=== PATIENT | male | born 1985 | race Two or more races ===

== ENCOUNTER 2018-10-19 19:21 | Emergency (ER) | payer SELFPAY ==
--- NOTE | 2018-10-19 19:38 | NUR ---
CALLED IN [facility], NO ANSWER.
--- NOTE | 2018-10-19 20:14 | NUR ---
PATIENT LEFT, NOT IN WAITING ROOM.
== END 2018-10-19 20:15 | disposition left against medical advice (07) ==
LOC: ER 19:26
DX: Z53.21 Procedure and treatment not carried out due to patient leaving prior to being seen by health care provider (principal)

== ENCOUNTER 2022-06-21 19:13 | Emergency (ER) | payer OTHER ==
[~2022-06-21] VITALS: Ht 170.2 cm; Wt 63.5 kg
--- NOTE | 2022-06-21 19:30 | NUR ---
BIBS C/O DIZZY TODAY @1700 UPON WAKING UP. PATIENT IS AAOX4. ABLE TO MAKE NEEDS KNOWN. PER PATIENT, HE HIT HIS LEFT ARM WHEN HE FELL. PATIENT IS PLACED COMFORTABLY IN BED. VITALS CHECKED.
--- NOTE | 2022-06-21 19:31 | NUR ---
COMPUTER DESIGNER AT BEDSIDE
--- NOTE | 2022-06-21 19:38 | NUR ---
SEEN BY DR VALLADARES AT BEDSIDE
--- NOTE | 2022-06-21 19:41 | NUR ---
EKG DONE AT BEDSIDE
--- NOTE | 2022-06-21 19:47 | NUR ---
XRAY DONE AT BEDSIDE
[2022-06-21 19:58] LABS: BASOPHILS % (AUTO) 0.7 % (0.0-2.0); EOSINOPHILS % (AUTO) 0.8 % (0.0-6.0); HEMATOCRIT 44 % (39-51); HEMOGLOBIN 15.2 g/dL (13.5-17.5); LYMPHOCYTES # (AUTO) 1.3 K/uL (0.8-4.8); LYMPHOCYTES % (AUTO) 20.2 % (20.0-44.0); MEAN CORPUSCULAR HGB CONC 34 g/dl (31.0-36.0); MEAN CORPUSCULAR VOLUME 89 fL (80-96); MONOCYTES # (AUTO) 0.5 K/uL (0.1-1.30); NEUTROPHILS # (AUTO) 4.6 K/uL (1.8-8.9); NEUTROPHILS % (AUTO) 71.3 % (43.0-81.0); PLATELET COUNT (AUTO) 236 K/uL (150-450); RED BLOOD CELL COUNT(AUTO) 4.97 MIL/uL (4.5-6.0); WHITE BLOOD COUNT (AUTO) 6.5 K/uL (4.3-11.0)
--- NOTE | 2022-06-21 20:05 | NUR ---
SISTER VALENTE [phone]
[2022-06-21 20:07] LABS: CALCIUM, SERUM 8.4 mg/dL (8.5-10.1); CARBON DIOXIDE 27 mmol/L (21-32); CHLORIDE 99 mmol/L (98-107); CREATININE 0.9 mg/dL (0.6-1.3); GLUCOSE 97 mg/dL (74-106); POTASSIUM 3.4 mmol/L (3.5-5.1); SODIUM SERUM 134 mmol/L (136-145); UREA NITROGEN, BLOOD 15 mg/dL (7-18)
[2022-06-21] MEDS ORDERED: IV NS 0.9% 1,000 ML IV ONE (20:30)
--- NOTE | 2022-06-21 20:44 | NUR ---
CALLED EDGE FINISHER NOT RESPONDING. LEFT VM
--- NOTE | 2022-06-21 20:45 | NUR ---
SISTER SOFIE [phone]
--- NOTE | 2022-06-21 20:48 | NUR ---
LEFT VOICEMAIL TO [facility]AA[facility].
--- NOTE | 2022-06-21 21:31 | NUR ---
SEEN BY DR VALLADARES AT BEDSIDE
--- NOTE | 2022-06-21 21:31 | NUR ---
B2B ACCOUNT EXECUTIVE AT BEDSIDE
--- NOTE | 2022-06-21 21:42 | NUR ---
IV CANNULA REMOVED
--- NOTE | 2022-06-21 21:42 | NUR ---
Patient discharged to home in stable condition. Written and verbal after care instructions given. Patient verbalizes understanding of instruction.
[2022-06-21 21:43] VITALS: BP 139/76
== END 2022-06-21 21:43 | disposition home or self-care (01) ==
LOC: ER 19:17
DX: R07.89 Other chest pain (principal); R55 Syncope and collapse; F17.200 Nicotine dependence, unspecified, uncomplicated
CPT/HCPCS: 99285; 71045; 99406; 93005 ×2; 85025; 80048; 36415; 84484 ×2; J7030

== ENCOUNTER 2025-01-13 16:46 | Emergency (ER) | payer OTHER ==
[~2025-01-13] VITALS: Ht 170.2 cm; Wt 81.6 kg
[2025-01-13 16:55] VITALS: TEMP 98.6
[2025-01-13 17:21] LABS: PLATELET COUNT (AUTO) 229 K/uL (150-450); RED BLOOD CELL COUNT(AUTO) 4.75 MIL/uL (4.5-6.0); RED CELL DISTRIBUTION WIDTH 13.0 % (11.5-15.0); WHITE BLOOD COUNT (AUTO) 5.3 K/uL (4.3-11.0)
[2025-01-13 17:35] LABS: CALCIUM, SERUM 8.7 mg/dL (8.5-10.1); CREATININE 1.0 mg/dL (0.6-1.3); SODIUM SERUM 141 mmol/L (136-145); UREA NITROGEN, BLOOD 28 mg/dL (7-18)
[2025-01-13] MEDS ORDERED: ASPIRIN 325 MG TABLET ONE (17:38)
[2025-01-13] MEDS: ASPIRIN 325 MG TABLET PO ONE (17:41)
[2025-01-13 18:10] VITALS: BP 112/79; O2SAT 99
== END 2025-01-13 19:08 | disposition left against medical advice (07) ==
LOC: ER 16:53
DX: R07.89 Other chest pain (principal); F17.200 Nicotine dependence, unspecified, uncomplicated
CPT/HCPCS: 36415; 71045-TC; 80048-TC; 84484-TC; 85025-TC